=== PATIENT | male | born 1945 | race Caucasian/White ===

== ENCOUNTER → 2016-05-04 | Outpatient (CLI) | payer OTHER ==
--- NOTE | 2016-05-04 13:57 | DX ---
Chest, Two Views - May 04, 2016, at 1222 hours History: Left chest pain, reduced left-sided breath sounds. Comparison: December 2015 Findings: Cardiac silhouette is mildly enlarged. Atherosclerotic tortuous aorta. Old bilateral rib fr actures. No pneumonia, congestive heart failure, pleural effusion, or pneumothorax. Impression: 1. Old bilateral rib fractures. 2. Atherosclerotic tortuous aorta 3. No acute pneumonia, pleural effusion, or pulmonary edema.
== END ==
LOC: CIMAGING 11:48
PROVIDERS: ATTEND Internal Medicine
DX: S22.43XD Multiple fractures of ribs, bilateral, subsequent encounter for fracture with routine healing (principal); I70.0 Atherosclerosis of aorta; I10 Essential (primary) hypertension
CPT/HCPCS: 71020-PO